=== PATIENT | male | born 1990 ===

== ENCOUNTER 2025-08-23 10:02 | Outpatient (AMB) | payer OTHER, SELFPAY ==
--- OUTSIDE RECORDS SUMMARY | 2025-08-23 12:09 | XMS_ITS | Clinical Summary ---
Author Organization [facility] Address [address] [place] [address] Phone Care Team Providers Care Switchman Name Role Phone Caterina Bundy MD Primary Care Provider [phone] Allergies Active Allergy Reactions Criticality Noted Date Comments Latex Rash 03/28/2022 Other 03/23/2012 Seasonal allergies Medications fluvoxaMINE (LUVOX) 25 mg tablet TAKE 1 TABLET BY MOUTH AT BEDTIME 04/06/2024 Active loratadine-pseu doephedrine (CLARITIN-D 24-hour) 10-240 mg per 24 hr tablet Take by mouth. Active Active Problems Problem Noted Date Diagnosed Date Abdominal cramping 10/13/2024 Nausea 10/13/2024 OCD (obsessive compulsive disorder) 10/13/2024 Seasonal allergies 10/13/2024 Epididymitis 04/28/2024 Anxiety 09/03/2022 Marijuana use 03/12/2020 Gallbladder sludge 08/02/[address] scan 05/23/2019 Overview (10/13/2024): 05/20- could not be reached by surgery for followup of epigastric pain, abnormal abdominal CT- trace ascities, nonspecific gallbladder changes, and billiary sludge, letter sent GERD (gastroesophageal reflux disease) 8 Overview (10/13/2024): 10/19- did not f/u with GI, letter sent. Asthma 03/23/2012 Immunizations Immunization Administration Dates Next Due DTP 01/04/2012, 5,02/16/1991,12/14,1990 [id number] (Pentacel) 2mo to less than 5yo 10/04/1991,02/16/1991,1990,10/06 H1N1 Inj Preservative Free 11/05/2009 Hepatitis B Pediatric (Enger ix B; Recombivax HB) to less than 20 yo 12/30/1996,06/06/1996,03/22/1996 Influenza trivalent, 0.5mL, preservative free (Fluarix; FluLaval; Fluzone) ages 6mo and older (Afluria) 3 years and older 11/06/2010,11/05/2009 MMR, measles mumps and rubel la Live (Priorix; M-M-R II) 12mo and older 06/09/1995,10/04/1991 Meningococcal MCV4P 05/14/2009 OPV 06/09/1995, 2,1990,10/06 PPD Test 03/23/2012 Td Tetanus diptheria (Tdvax) 7yo and older 07/05/2003 Tdap Tetanus diptheria acell ular pertussis (Boostrix; Adacel) 7yo and older 02/16/2024,03/23/2012,05/14/2009 Surgical History Surgery Date Site/Laterality Comments UPPER GASTROINTESTINAL ENDOSCOPY 03/12/2017 PROCEDURE: OR UPPER GI ENDOSCOPY PERFORMED; COMMENT: Focal active gastritis, no H. pylori OTHER SURGICAL HISTORY PROCEDURE: ---- OTHER ----; COMMENT: removal of cyst CYST REMOVAL PROCEDURE: OR EXCISION PILONIDAL CYST/SINUS SIMPLE Medical History Medical History Date Comments Seasonal allergies DX:Seasonal a llergies Abdominal pain 05/23/2019 DX:Abdominal tesha n; COMMENT: 05/20- could not be reached by surgery for followup of epigastric pain, abnormal abdominal CT- trace ascities, nonspecific gallbladder changes, and billiary sludge, letter sent Anxiety state DX:Anxiety state Irritable bowel syndrome DX:Irri table bowel syndrome OCD (obsessive compulsive disorder) DX:OCD (obsessive compulsive disorder) Abdominal cramping DX:Abdominal cramping Nausea DX:Nausea Asthma DX:Asthma Depressive disorder DX:Depressiv e disorder Esophageal reflux DX:Esophageal reflux Family History Medical History Relation Name Comments Hypertension Father Stroke Breast cancer Maternal Grandmother Arthritis Mother Breast cancer Mother Relation Name Status Comments Brother Alive X2 Father Alive Maternal Grandfather Maternal Grandmother Alive Mother Alive Paternal Grandfather Paternal Grandmother Social History Tobacco Use Types Packs/Day Years Used Date Smoking Tobacco: Never Smokeless Tobacco: Never Alcohol Use Standard Drinks/Week Comments Yes 3.3 (1 standard drink = 0.6 oz p ure alcohol) Sex and Gender Information Value Date Recorded Sex Assigned at Not on file Legal Sex Male 6:08 AM EST Gender Identity Not on file Sexual Orientation Not on file Obstetrics History Last Filed Vital Signs Vital Sign Reading Time Taken Comments Blood Pressure 120/82 05/31/2024 4:32 PM EDT Pulse 67 05/31/2024 4:32 PM EDT Temperature - - Respiratory Rate - - Oxygen Saturation - - Inhaled Oxygen Concentration - - Weight 70.8 kg (156 lb) 05/31/2024 4:32 PM EDT Height 169.2 cm (5' 6.63 ) 05/31/2024 4:32 PM ED T Body Mass Index 24.7 05/31/2024 4:32 PM EDT Plan of Treatment Health Maintenance Due Date Last Done Comments Pneumococcal Vaccine: Pediatrics (0 to 5 Years) and At-Risk Patients (6 to 49 Years) (1 of 2 - PCV) 2009 HPV Vaccines (1 - 3-dose SCDM series) 2017 HIV Screening 10/05/2022 Social Influencers of Health Screening 10/05/2022 Depression Screening 11/02/2024 COVID-19 Vaccine ( season) 2025 04/17/2021, 03/27/2021 Influenza Vaccine (#1) 2025 1, 11/05/2009, 11/05/2009 Cholesterol Screening (Lipid Panel) 02/15/2029 02/16/2024 DTaP,Tdap,and Td Vaccines (11 - Td or Tdap) 02/15/2034 02/16/2024, 03/23/2012, 01/04/2012, Additional history exists RSV Immunization Adult Patients (1 - 1-dose 75+ series) 2065 HIB Vaccines Completed 10/04/1991, 01/31, 1990, Additional history exists IPV Vaccines Completed 06/09/1995, 02/1992, 10/04/1991, Additional history exists MMR Vaccines Completed 06/09/1995, 10/04/1991 Hepatitis B Vaccines Completed 12/30/1996, 06/06/1996, 03/22/1996 Meningococcal ACWY Vaccine Completed 05/14/2009 Hepatitis C Screening Completed 04/14/2019 Hepatitis A Vaccines Aged Out No long er eligible based on patient's age to complete this topic Meningococcal B Vaccine Aged Out No l onger eligible based on patient's age to complete this topic RSV Immunization Patients Under 20 months Aged Out No longer eligible based on patient's age to complete this topic Varicella Vaccines Aged Out No longer eligible based on patient's age to complete this topic Procedures Procedure Name Priority Date/Time Associated Diagnosis Comments LIPID PANEL Routine 02/16/2024 HEPATITIS C SCREENING Routine 04/14/2019 from Last 3 Months or Most Recently Relevant to Health Maintenance Results * Lipid panel (02/16/2024) LDL/HDL Ratio 2 0 - 4 Triglycerides 74 0 - 150 mg/dL Cholesterol 153 0 - 200 mg/dL HDL 65 >=40 mg/dL LDL Cholesterol 74 0 - 100 mg/dL Blood Venous blood specimen / Unknown Historical Provider LAB BLOOD ORDERABLES Sarah l Result * Hepatitis C Screening (04/14/2019) Hepatitis C Screening abstracted Historical Provider HEALTH MAINTENANCE Final Result from Last 3 Months or Most Recently Relevant to Health Maintenance Insurance [facility] Care Teams Switchman Relationship Specialty Start Date End Date Caterina Bundy MD [address] [place] [address] PCP - General Internal Medicine 05/07/21
== END 2025-08-23 10:02 | disposition home or self-care (01) ==
LOC: HO.HMGAL 10:02
PROVIDERS: PCP Internal Medicine Gastroenterology; Visit Provider Registered Nurse Emergency
DX: J30.89 Other allergic rhinitis (principal)
CPT/HCPCS: 95117; 95165

== ENCOUNTER 2025-10-23 16:07 | Outpatient (AMB) | payer OTHER, SELFPAY ==
--- OUTSIDE RECORDS SUMMARY | 2025-10-23 18:45 | XMS_ITS | Clinical Summary ---
Author Organization [facility] Address [address] [place] [address] Phone Care Team Providers Care Migratory Farm Hand Name Role Phone Caterina Bundy MD Primary Care Provider [phone] Allergies Active Allergy Reactions Criticality Noted Date [...] Administration Dates Next Due DTP 01/04/2012, 5,02/16/1991,12/14,1990 [id number] (Pentacel) 2mo to less than 5yo 10/04/1991,02/16/1991,1990,10/06 [...] Site/Laterality Comments UPPER GASTROINTESTINAL ENDOSCOPY 03/12/2017 PROCEDURE: MO UPPER GI ENDOSCOPY PERFORMED; COMMENT: Focal active gastritis, no H. pylori OTHER SURGICAL HISTORY PROCEDURE: ---- OTHER ----; COMMENT: removal of cyst CYST REMOVAL PROCEDURE: MO EXCISION PILONIDAL CYST/SINUS SIMPLE Medical History Medical [...] on file Sexual Orientation Not on file Last Filed Vital Signs Vital Sign Reading [...] C Screening (04/14/2019) Hepatitis C Screening abstracted us Historical Provider HEALTH MAINTENANCE Final Result from Last 3 Months or Most Recently Relevant to Health Maintenance Insurance [facility] Care Teams Migratory Farm Hand Relationship Specialty Start Date End Date Caterina Bundy MD [address] [place] [address] [place] [id number] PCP - General Internal Medicine 05/07/21
== END 2025-10-23 16:08 | disposition home or self-care (01) ==
LOC: HO.HMGAL 16:07
PROVIDERS: PCP Internal Medicine Gastroenterology; Visit Provider Registered Nurse Emergency
DX: J30.89 Other allergic rhinitis (principal)
CPT/HCPCS: 95117; 95165